=== PATIENT | female | born 1970 | race Caucasian/White ===

== ENCOUNTER 2022-02-27 12:28 | Emergency (ER) | payer MEDICAID, OTHER ==
[~2022-02-27] VITALS: Ht 167.6 cm; Wt 81.8 kg
[2022-02-27 12:36] VITALS: BP 169/99
== END 2022-02-27 14:42 | disposition left against medical advice (07) ==
LOC: M ED 12:28
DX: Z53.21 Procedure and treatment not carried out due to patient leaving prior to being seen by health care provider (principal)

== ENCOUNTER 2023-07-02 07:35 | Emergency (ER) | payer OTHER ==
[~2023-07-02] VITALS: Ht 167.6 cm; Wt 86.3 kg
[2023-07-02 07:36] VITALS: BP 142/94; TEMP 96.2; O2SAT 98
[2023-07-02] MEDS ORDERED: METF-838 PO (07:46)
[2023-07-02] MEDS ORDERED: GLYB2.5T7 PO (07:46)
[2023-07-02] MEDS ORDERED: LISI20TA35 PO (07:46)
[2023-07-02] MEDS ORDERED: HYDR-3713 PO (08:10)
== END 2023-07-02 08:31 | disposition home or self-care (01) ==
LOC: M ED 07:35
DX: R22.42 Localized swelling, mass and lump, left lower limb (principal); G89.18 Other acute postprocedural pain; E11.9 Type 2 diabetes mellitus without complications; I10 Essential (primary) hypertension; F17.200 Nicotine dependence, unspecified, uncomplicated; Z91.013 Allergy to seafood; Z79.84 Long term (current) use of oral hypoglycemic drugs; Z79.899 Other long term (current) drug therapy

== ENCOUNTER 2023-12-19 11:15 | Inpatient (IN) | payer OTHER ==
[~2023-12-19] VITALS: Ht 167.6 cm; Wt 89.5 kg
[~2023-12-19 11:15] MED LIST: GLYB2.5T7 PO; HYDR-3713 PO; LISI20TA35 PO; METF-838 PO
[2023-12-19] MEDS ORDERED: QUET100T2 (11:21)
[2023-12-19] MEDS ORDERED: PARO20TA3 PO (11:21)
[2023-12-19 12:28] LABS: HEMATOCRIT 42.2 % (36.0-47.0); HEMOGLOBIN 14.6 g/dl (12.0-15.5); MEAN CORPUSCULAR HEMOGLOBIN 31.3 pg (27.0-33.0); MEAN CORPUSCULAR HGB CONC 34.6 g/dl (32.0-36.5); MEAN CORPUSCULAR VOLUME 90.6 fl (80.0-96.0); PLATELET COUNT, AUTOMATED 256 10^3/uL (150-450); RED BLOOD COUNT 4.66 10^6/uL (4.00-5.40); WHITE BLOOD COUNT 10.6 10^3/uL (4.0-10.0)
[2023-12-19 13:03] LABS: ETHYL ALCOHOL (ETHANOL) < 0.003 % (0.000-0.010)
[2023-12-19 13:05] LABS: ALBUMIN 3.5 G/DL (3.2-5.2); ALKALINE PHOSPHATASE 70 U/L (46-116); ALT/SGPT 35 U/L (7.0-40); AST/SGOT 32 U/L (<34); BILIRUBIN,DIRECT 0.1 MG/DL (<0.4); BILIRUBIN,TOTAL 0.4 MG/DL (0.3-1.2); BLOOD UREA NITROGEN 16 MG/DL (9-23); CALCIUM LEVEL 9.6 MG/DL (8.5-10.1); CARBON DIOXIDE LEVEL 28 MMOL/L (20-31); CHLORIDE LEVEL 104 MMOL/L (98-107); CREATININE FOR GFR 0.76 MG/DL (0.55-1.30); GLOMERULAR FILTRATION RATE > 60.0 (>51); GLUCOSE, FASTING 75 MG/DL (60-100); POTASSIUM SERUM 3.9 MMOL/L (3.5-5.1); SALICYLATE LEVEL < 3.0 MG/DL (<30); SODIUM LEVEL 137 MMOL/L (136-145)
[2023-12-19 13:37] LABS: AMPHETAMINES LEVEL URINE NEGATIVE (NEGATIVE); BARBITURATES URINE NEGATIVE (NEGATIVE); BENZODIAZEPINES URINE NEGATIVE (NEGATIVE); CANNABINOIDS URINE NEGATIVE (NEGATIVE); COCAINE METABOLITE URINE NEGATIVE (NEGATIVE); METHADONE URINE NEGATIVE (NEGATIVE); OPIATES URINE NEGATIVE (NEGATIVE); PHENCYCLIDINE URINE NEGATIVE (NEGATIVE)
[2023-12-19] MEDS: NICOTINE 21MG/24HR 1 EA TRANSDERMAL TD ONE (15:25)
[2023-12-19] MEDS ORDERED: MED REC IN PROGRESS XX SCH (15:35)
[2023-12-19] MEDS ORDERED: MULT-90 PO (15:55)
[2023-12-19] MEDS ORDERED: MAGN400T33 PO (15:55)
[2023-12-19] MEDS ORDERED: METF10004 PO (15:55)
[2023-12-19] MEDS ORDERED: QUET50TA4 PO (15:55)
[2023-12-19] MEDS ORDERED: HOME MED LIST COMPLETE! XX SCH (16:05)
[2023-12-19 16:57] VITALS: BP 125/72; TEMP 97.8; O2SAT 95
[2023-12-19] MEDS: traZODone 50 MG TAB PO PRN (20:12)
[2023-12-19] MEDS: metFORMIN (GLUCOPHAGE) 500MG TAB PO SCH (22:13)
[2023-12-20 06:23] VITALS: BP 144/82; TEMP 97.2; O2SAT 97
[2023-12-20] MEDS: NICOTINE 14 MG/24 HR TRANSDERMAL TD SCH (08:42)
[2023-12-20] MEDS: hydroCHLOROthiazide 12.5 MG CAPSULE PO SCH (08:42)
[2023-12-20] MEDS: IBUPROFEN 400MG TAB PO PRN (08:45)
[2023-12-20] MEDS: metFORMIN (GLUCOPHAGE) 1000MG TABLET PO SCH (09:34)
[2023-12-20] MEDS: QUEtiapine FUMARATE 50MG TAB PO SCH (09:35)
[2023-12-20] MEDS: VENLAFAXINE **XR** 37.5 MG CAPSULE PO SCH (09:35)
[2023-12-20] MEDS: MAGNESIUM OXIDE 400MG TAB (MAG-OX) PO SCH (09:35)
[2023-12-20 16:08] VITALS: BP 120/73; TEMP 97.9
[2023-12-21 06:49] VITALS: BP 115/68; TEMP 97.7
[2023-12-21 07:09] LABS: CHOLESTEROL LEVEL 178 MG/DL (<200); CHOLESTEROL RISK RATIO 5.74 (<5); TRIGLYCERIDES LEVEL 525 MG/DL (<150)
[2023-12-21 16:29] VITALS: BP 129/83; TEMP 97.5; O2SAT 97
[2023-12-21] MEDS: diphenhydrAMINE 25MG CAP PO PRN (17:04)
[2023-12-21] MEDS: QUEtiapine FUMARATE 50MG TAB PO SCH (20:41)
[2023-12-21] MEDS: traZODone 100 MG TAB PO PRN (20:41)
[2023-12-22 06:41] VITALS: BP 110/64; TEMP 97.1; O2SAT 98
[2023-12-22] MEDS: MOM 30ML SUSPENSION UDC PO PRN (08:34)
[2023-12-22] MEDS: ACETAMINOPHEN TAB 650MG DOSE (2X325MG) PO PRN (11:24)
[2023-12-22 16:47] VITALS: BP 121/73; TEMP 97.7; O2SAT 96
[2023-12-22] MEDS: MAALOX 30 ML SUSP *UDC PO PRN (20:40)
[2023-12-23 06:41] VITALS: BP 123/57; TEMP 98; O2SAT 96
[2023-12-23] MEDS: MAGNESIUM CITRATE 300ML BTL PO ONE (13:22)
[2023-12-23 17:04] VITALS: BP 133/77; TEMP 97.1; O2SAT 97
[2023-12-24 06:45] VITALS: BP 122/78; TEMP 97.9; O2SAT 95
[2023-12-24] MEDS: VENLAFAXINE **XR** 37.5 MG CAPSULE PO ONE (10:53)
[2023-12-24 18:28] VITALS: BP 115/72; TEMP 97.1; O2SAT 98
[2023-12-25 06:38] VITALS: BP 131/76; TEMP 97.7; O2SAT 97
[2023-12-25] MEDS: VENLAFAXINE **XR** 75MG CAPSULE PO SCH (08:04)
[2023-12-25] MEDS: busPIRone 10 MG TAB PO SCH (13:17)
[2023-12-25 17:15] VITALS: BP 143/82; TEMP 97.6; O2SAT 97
[2023-12-26 06:09] VITALS: BP 123/68; TEMP 97.8; O2SAT 95
[2023-12-26 18:21] VITALS: BP 128/70; TEMP 97.8
[2023-12-27 06:24] VITALS: BP 131/80; TEMP 97.6; O2SAT 95
[2023-12-27 17:30] VITALS: BP 138/80; TEMP 97.8
[2023-12-28 06:41] VITALS: BP 131/73; TEMP 97.7; O2SAT 96
[2023-12-28 08:22] VITALS: BP 139/70
[2023-12-28] MEDS ORDERED: NICO14PA TD (09:51)
[2023-12-28] MEDS ORDERED: VENL75CA47 PO (09:51)
[2023-12-28] MEDS ORDERED: TRAZ-257 PO (09:51)
[2023-12-28] MEDS ORDERED: BUSP10TA PO (09:51)
[2023-12-28] MEDS ORDERED: QUET50TA4 PO (09:51)
== END 2023-12-28 13:50 | disposition home or self-care (01) | DRG 751 ==
LOC: M ED 11:15 → M ED INP 15:39 → M PSY 16:11
PROVIDERS: ADMIT Student in an Organized Health Care Education/Training Program; ATTEND Student in an Organized Health Care Education/Training Program
DX: F33.1 Major depressive disorder, recurrent, moderate (principal); R45.851 Suicidal ideations; F17.210 Nicotine dependence, cigarettes, uncomplicated; M25.572 Pain in left ankle and joints of left foot; R12 Heartburn; R05.9 Cough, unspecified; I10 Essential (primary) hypertension; E11.42 Type 2 diabetes mellitus with diabetic polyneuropathy; E78.5 Hyperlipidemia, unspecified; Z89.422 Acquired absence of other left toe(s); Z81.8 Family history of other mental and behavioral disorders; Z79.84 Long term (current) use of oral hypoglycemic drugs; Z79.899 Other long term (current) drug therapy; Z88.5 Allergy status to narcotic agent; Z91.013 Allergy to seafood; Z20.822 Contact with and (suspected) exposure to COVID-19